=== PATIENT | female | born 1955 | race Caucasian/White ===

== ENCOUNTER 2018-10-28 19:47 | Emergency (ER) | payer OTHER ==
--- NOTE | 2018-10-28 20:20 | EDPHY ---
H & P Time Seen by Provider: 10/28/18 19:55 HPI/ROS: CHIEF COMPLAINT: Left wrist pain HISTORY OF PRESENT ILLNESS: 63-year-old [id number] female arrives via private vehicle complaining of acute left wrist pain after fall on outstretched hand when she slipped on ice. No proximal pain or injury. No head injury. No syncope. No alcohol or drug use. This was a mechanical slip on the ice incident. REVIEW OF SYSTEMS: 10 systems reviewed and negative with the exception of the elements mentioned in the history of present illness PAST MEDICAL/SURGICAL HISTORY: no anticoagulant use, no relevant medical/ surgical history SOCIAL HISTORY: denies alcohol use at time of incident PHYSICAL EXAM 1) GENERAL: Well-developed, well-nourished, alert and oriented. Appears to be in no acute distress. Answering questions appropriately. 2) HEAD: Normocephalic, atraumatic 3) HEENT: Pupils equal, round, reactive to light bilaterally. Negative Horners. Nasopharynx, oropharynx, clear. No deformity or angulation of nose. No septal hematoma. No rhinorrhea. No oral trauma. Ears bilaterally with normal tympanic membranes. No hemotympanum. No fluid or blood in the external auditory canal. No raccoon eyes. No Kern sign. Teeth are normally aligned with no gross malocclusion, TMJ bilaterally nontender, facial bones nontender including the zygomatic arch, maxilla mandible. 4) NECK: No cervical collar is on. Posterior cervical spine is nontender, no stepoff, no effusion. Full range of motion which does not elicit any midline cervical spine pain, no posterior midline tenderness, no step-off. 5) LUNGS: Clear to auscultation bilaterally, no wheezes, no rhonchi, no retractions. No obvious signs of trauma. No chest wall pain. No flaring, no grunting. Moving symmetrically. No crepitus. 6) HEART: [Regular rate and rhythm, 7) ABDOMEN: No guarding, no rebound, no focal tenderness, no peritoneal signs, no signs of trauma, no ecchymosis 8) MUSCULOSKELETAL: Left upper extremity: Dorsal deformity to the wrist is noted. Intact skin. No tenting of tissue. Radial ulnar median nerve function intact. Proximally nontender. Brisk pulses and capillary refill. Otherwise, Moving all extremities, no focal areas of tenderness, no obvious trauma. 9) BACK: No midline vertebral tenderness, no fluctuance, no step-off, no obvious trauma, no visual or palpable abnormality. 10) SKIN: No laceration. No abrasion DIFFERENTIAL DIAGNOSIS: In no particular order including but not limited to fracture, sprain, strain, dislocation Smoking Status: Never smoked Constitutional: Initial Vital Signs Temperature (C) 37 C 10/28/18 19:52 Heart Rate 100 10/28/18 19:52 Respiratory Rate 20 10/28/18 19:52 Blood Pressure 222/114 H 10/28/18 19:52 O2 Sat (%) 93 10/28/18 19:52 O2 Delivery Mode Room Air Allergies/Adverse Reactions: No Known Allergies Allergy (Unverified 10/28/18 19:52) Home Medications: Medication Instructions Recorded Hydrocodone/APAP 5/325 [[place] 1 tab PO Q6 PRN #7 tab 10/28/18 5/325 (RX)] Hypertension Med 10/28/18 MDM/Departure - MDM Imaging Results: Imaging Impressions Wrist X-Ray 10/28/18 19:58 Impression: 1. Comminuted intra-articular fracture of the distal radius with mild dorsal angulation 2. Comminuted minimally displaced ulnar styloid fracture. Wrist X-Ray 10/28/18 20:44 Impression: 1. No significant residual angulation of a comminuted intra-articular distal radial fracture. 2. Stable minimally displaced ulnar fracture. Images reviewed myself Procedures: Procedure: Fracture reduction Indication: Fracture of the distal radius fracture Indications, risks and benefits discussed with patient and consent obtained. A hematoma block of 0.5% bupivicaine placed by myself. Traction and countertraction applied achieving a visible and palpable reduction. The area was splinted with [splint]. After application of the splint I returned and re- examined the patient. The splint was adequately immobilizing the joint and distal to the splint the patient's circulation and sensation were intact. Patient shows no signs of compartment syndrome. Was given orthopedic precautions. ED Course/Re-evaluation: 8:59 p.m.: Re-evaluation. Reduction in the ER with hematoma block. Patient has soft compartments is neurovascular intact. She will need follow-up with orthopedics. She has been informed of the intra-articular component of her injury, she may necessitate ORIF. I do not think that emergent orthopedic consultation is indicated. Given the name of Dr. Rodger Jain, discharged with analgesia and my usual and customary orthopedic precautions and instructions. Care of patient under supervision of secondary supervising physician Dr Flores . - Depart Disposition: Home, Routine, Self-Care Clinical Impression: Fall from slipping on ice Qualifiers: Encounter type: initial encounter Qualified Code(s): W00.9XXA - Unspecified fall due to ice and snow, initial encounter Left wrist fracture Qualifiers: Encounter type: initial encounter Fracture type: closed Qualified Code(s): S62.102A - Fracture of unspecified carpal bone, left wrist, initial encounter for closed fracture Condition: Good Instructions: Wrist Fracture in Adults (ED) Additional Instructions: Return to the ER immediately if you experience discoloration, have worsening pain, numbness, tingling, or any other symptoms that concern you. If you received x-rays in the emergency department today, be advised, that ligamentous , tendon, muscular, and other non-bony injury cannot be fully ruled out. Try to keep your affected extremity elevated above the level of your chest, and keep cold packs on the affected area, for the next 48 hours. Stand Alone Forms: Work Excuse Prescriptions: Hydrocodone/APAP 5/325 [[place] 5/325 (RX)] 1 tab PO Q6 PRN #7 tab PRN Reason: Pain, Severe Referrals: Rodger Jain MD [Medical Doctor] - 2-3 days, call for appt.
[2018-10-28 21:22] VITALS: BP 169/102
== END 2018-10-28 21:22 | disposition home or self-care (01) ==
PROC: 0PSJXZZ Reposition Left Radius, External Approach (ICD-10-PCS; principal; 2018-10-28)
DX: S62.102A Fracture of unspecified carpal bone, left wrist, initial encounter for closed fracture (principal); W00.9XXA Unspecified fall due to ice and snow, initial encounter; Y92.9 Unspecified place or not applicable; Y93.9 Activity, unspecified; Y99.9 Unspecified external cause status

== ENCOUNTER → 2019-01-10 | Outpatient (CLI) | payer OTHER | LOC: FIMAGING 15:07 | PROVIDERS: ATTEND Family Medicine | DX: Z12.31 Encounter for screening mammogram for malignant neoplasm of breast (principal) ==